=== PATIENT | female | born 1955 | race Caucasian/White ===

== ENCOUNTER → 2023-07-04 | Day surgery (SDC) | payer MEDICARE, OTHER ==
[~2023-07-04] MED LIST: Lidocaine 1% 30 ML SDV ONE; Lidocaine 1% 30 ML SDV SUBCUT ONE
== END ==
LOC: CC.SDS 12:24
PROVIDERS: ATTEND Family Medicine
DX: I83.813 Varicose veins of bilateral lower extremities with pain (principal); I87.2 Venous insufficiency (chronic) (peripheral); M19.90 Unspecified osteoarthritis, unspecified site; J45.909 Unspecified asthma, uncomplicated; I10 Essential (primary) hypertension; Z79.899 Other long term (current) drug therapy; Z91.040 Latex allergy status; Z88.8 Allergy status to other drugs, medicaments and biological substances
CPT/HCPCS: A4216; C1888; J3490